=== PATIENT | male | born 1995 | race Caucasian/White ===

== ENCOUNTER 2020-05-10 15:15 | Emergency (ER) | payer BC, MEDICAID ==
[~2020-05-10] VITALS: Ht 182.9 cm; Wt 71.7 kg
[2020-05-10] MEDS ORDERED: HYDROcodone/acetaminophen 5mg/325mg tablet PO ONE (18:15)
[2020-05-10] MEDS ORDERED: cephalexin 250mg capsule PO ONE (19:15)
[2020-05-10] MEDS ORDERED: CEPH-585 PO (19:15)
[2020-05-10] MEDS ORDERED: HYDR-3965 PO (19:15)
[2020-05-10 19:22] VITALS: BP 123/72
== END 2020-05-10 19:23 | disposition home or self-care (01) ==
LOC: ER 15:15
DX: S62.337A Displaced fracture of neck of fifth metacarpal bone, left hand, initial encounter for closed fracture (principal); G40.909 Epilepsy, unspecified, not intractable, without status epilepticus; Z79.2 Long term (current) use of antibiotics; Z79.899 Other long term (current) drug therapy; W22.8XXA Striking against or struck by other objects, initial encounter; Y93.89 Activity, other specified; Y92.89 Other specified places as the place of occurrence of the external cause; Y99.8 Other external cause status
CPT/HCPCS: 26605; 73120; 73130; 99284